=== PATIENT | male | born 1985 | race Caucasian/White ===

== ENCOUNTER 2018-09-15 01:00 | Emergency (ER) | payer OTHER ==
[~2018-09-15] VITALS: Ht 182.9 cm; Wt 59.0 kg
[2018-09-15 01:49] LABS: HEMATOCRIT 58.2 % (42.0-52.0); HEMOGLOBIN 18.7 gm/dL (14.0-18.0); MCH 29.8 pg (26.0-34.0); MCHC 32.1 g/dL (28.0-37.0); MCV 92.8 fL (80.0-100.0); MPV 8.2 fl. (7.2-11.1); NUCLEATED RBCS 0 /100WBC; PLATELET COUNT* 446 thou/uL (150-400); RBC 6.28 mil/uL (4.50-6.00); RDW-CV 15.5 % (10.5-14.5); WBC 14.3 thou/uL (4.0-11.0)
[2018-09-15 01:57] LABS: BE -23.8 mmol/L (-2 to +3); PCO2 27.3 mmHg (35.0-45.0); PO2 82.7 mmHg (75.0-100.0)
[2018-09-15 02:00] LABS: pH 6.994 (7.340-7.450)
[2018-09-15 02:02] LABS: AMP/METHAMP Negative (Negative); BARBITURATES Negative (Negative); BENZODIAZEPINES Negative (Negative); COCAINE Negative (Negative); METHADONE Negative (Negative); OPIATES Negative (Negative); PCP Negative (Negative); THC Negative (Negative)
[2018-09-15 02:10] LABS: URINE BLOOD TRACE (Negative); URINE CLARITY CLEAR; URINE COLOR YELLOW; URINE GLUCOSE-RANDOM 3+ (Negative); URINE KETONES 2+ (Negative); URINE LEUKOCYTES-REFLEX NEGATIVE (Negative); URINE NITRITE-REFLEX NEGATIVE (Negative); URINE PROTEIN TRACE (Negative); URINE SPECIFIC GRAVITY 1.025 (1.005-1.030); URINE UROBILINOGEN 0.2 E.U./dl (0.2-1.0)
[2018-09-15 02:12] LABS: PROTIME 10.7 Seconds (9.20-11.50)
[2018-09-15 02:17] LABS: URINE BILIRUBIN 1+ (Negative)
[2018-09-15 02:21] LABS: POC ANION GAP 25 mmol/L (10-20); POC BUN 90 mg/dL (8-26); POC CA IONIZED 4.8 mg/dL (4.5-5.3); POC CHLORIDE 121 mmol/L (98-109); POC CREATININE 2.3 mg/dL (0.6-1.3); POC GLUCOSE > 700 mg/dL (70-105); POC HEMOGLOBIN 17.7 g/dL (12.0-17.0); POC POTASSIUM 4.4 mmol/L (3.5-4.9); POC SODIUM 151 mmol/L (138-146); POC TCO2 10 mmol/L (24-29)
[2018-09-15 02:22] LABS: ICTOTEST (BILI CONFIRMATORY) Negative (Negative)
[2018-09-15 02:23] LABS: ALBUMIN 3.5 g/dL (3.4-5.0); ALKALINE PHOSPHATASE 167 U/L (46-116); BUN 102 mg/dL (7-18); CALCIUM 9.5 mg/dL (8.5-10.1); CHLORIDE 106 mmol/L (98-107); CREATININE 3.1 mg/dL (0.6-1.3); LIPASE 1285 U/L (73-393); NT-PRO BRAIN NAT PEPTIDE 289 pg/mL (<300); POTASSIUM 4.2 mmol/L (3.5-5.1); SGOT 14 U/L (15-37); SGPT 25 U/L (30-65); SODIUM 145 mmol/L (136-145); TOTAL BILIRUBIN 0.6 mg/dL (<0.1-1.0); TOTAL PROTEIN 8.7 g/dL (6.4-8.2); TROPONIN-I LEVEL <0.06 ng/mL (<0.06)
[2018-09-15 02:49] LABS: ANION GAP 28 mmol/L (7-16); CO2 11 mmol/L (21-32); GLUCOSE 772 mg/dL (70-99)
[2018-09-15] MEDS ORDERED: LOPRESSOR50 (02:56)
[2018-09-15] MEDS ORDERED: COZAAR 25 MG TA25 M1 (02:56)
[2018-09-15] MEDS ORDERED: CYMBALTA30 MG (02:57)
[2018-09-15] MEDS ORDERED: [UNRECOGNIZED DRUG - OTHER] (02:58)
[2018-09-15] MEDS ORDERED: GLUCOTROL5 MG (02:58)
[2018-09-15] MEDS ORDERED: FENOFIBRATE160 MG (02:59)
[2018-09-15 03:29] LABS: ABSOLUTE LYMPHOCYTES 1.4 thou/uL (0.8-5.3); ABSOLUTE MONOCYTES 1.3 thou/uL (0.0-1.2); ABSOLUTE NEUTROPHILS 11.6 thou/uL (1.6-8.1)
[2018-09-15 03:30] LABS: PLATELET ESTIMATE INCREASED
[2018-09-15 04:03] LABS: CALCIUM 8.3 mg/dL (8.5-10.1); CREATININE 2.9 mg/dL (0.6-1.3); POTASSIUM 3.3 mmol/L (3.5-5.1)
[2018-09-15 04:56] LABS: PO2 > 488.8 mmHg (75.0-100.0); pH 7.144 (7.340-7.450)
[2018-09-15 07:11] VITALS: BP 95/62
--- NOTE | 2018-09-15 15:56 | EKG ---
[place] [address] ELECTROCARDIOGRAM REPORT Name: LAWRENCE CHANEY Room: [facility]#: [id number] Admission: 09/15/18 Attend Phys: Discharge: 09/15/18 Date of : 87 Report #: [id number] THIS REPORT FOR: //name// [facility] ED Test Date: 2018-09-15 Test Time: 02:09:44 Pat Name: LAWRENCE CHANEY Department: Room: Gender: M Kitchen Manager: WALLY : 1985 Requested By: Genia Leonard Order Number: [id number] MD: Darnell Salgado Measurements Intervals [place] Rate: 102 P: 76 CO: 110 QRS: 84 QRSD: 102 T: -20 QT: 378 QTc: 493 Interpretive Statements Sinus tachycardia Probable left atrial enlargement Borderline T abnormalities, inferior leads Prolonged QT interval Baseline wander in lead(s) V3,V4 No previous ECG available for comparison Electronically Signed On 09-15-2018 15:56:28 PROGRAM ATTENDANT by Darnell Salgado [email or web address] <ELECTRONICALLY SIGNED> By: Darnell Salgado MD, [facility] 09/15/18 [id number] Darnell Salgado MD, FACC /EPI
== END 2018-09-15 07:11 | disposition still patient (30) ==
LOC: M.ERS 01:00
PROVIDERS: Emergency Medicine
DX: E11.10 Type 2 diabetes mellitus with ketoacidosis without coma (principal); R41.82 Altered mental status, unspecified; Z88.1 Allergy status to other antibiotic agents; Z88.8 Allergy status to other drugs, medicaments and biological substances